=== PATIENT | male | born 1930 ===

== ENCOUNTER 2019-10-05 15:04 | Emergency (ER) | payer MEDICARE ==
[~2019-10-05] VITALS: Ht 180.3 cm; Wt 75.0 kg
[2019-10-05] MEDS ORDERED: LOVA20TA2 PO (15:24)
[2019-10-05] MEDS ORDERED: LISI-167 PO (15:24)
--- NOTE | 2019-10-05 15:26 | NUR ---
PT REPORTS PAINFUL LUMP ON RIGHT GROIN X2 HOURS, PAINFUL TO THE TOUCH, STATES HE JUST NOTICED IT TODAY, DENIES TRAUMA.
[2019-10-05 15:56] LABS: BASOPHILS # (AUTO) 0.03 x10^3/uL (0-0.1); BASOPHILS % (AUTO) 1 % (0-1); EOSINOPHILS # (AUTO) 0.06 x10^3/uL (0-0.4); EOSINOPHILS % (AUTO) 1 % (1-7); LYMPHOCYTES # (AUTO) 3.32 x10^3/uL (1-3.4); LYMPHOCYTES % (AUTO) 43 % (22-44); MD NO; MEAN CORPUSCULAR HEMOGLOBIN 32.1 pg (27.5-34.5); MEAN CORPUSCULAR VOLUME 97.5 fL (81-97); MEAN PLATELET VOLUME 7.1 fL (7.4-10.4); MONOCYTES % (AUTO) 13 % (2-9); NEUTROPHILS # (AUTO) 3.22 x10^3/uL (1.8-6.8); NEUTROPHILS % (AUTO) 42 % (42-75); PLATELET COUNT 175 x10^3/uL (130-400); RED BLOOD COUNT 4.12 x10^6/uL (4.38-5.82)
[2019-10-05 16:03] LABS: ALBUMIN 3.5 g/dL (3.4-5.0); ANION GAP 10 mmol/L (5-15); CALCIUM 8.6 mg/dL (8.5-10.1); CHLORIDE 96 mmol/L (98-107); CREATININE 0.72 mg/dL (0.7-1.3)
--- NOTE | 2019-10-05 16:07 | NUR ---
US AT BEDSIDE.
[2019-10-05 16:38] VITALS: BP 190/116
== END 2019-10-05 17:08 | disposition home or self-care (01) ==
LOC: ED 16:30
DX: K40.90 Unilateral inguinal hernia, without obstruction or gangrene, not specified as recurrent (principal)
CPT/HCPCS: 36415; 76857; 80048; 82040; 85025; 99284

== ENCOUNTER → 2019-11-11 | Outpatient (CLI) | payer MEDICARE ==
[~2019-11-11] MED LIST: LISI-167 PO; LISI1TAB39 PO; LOVA20TA2 PO; PLAN450T PO; VIT1TABL32 PO
[2019-11-11 10:01] LABS: ALANINE AMINOTRANSFERASE 17 U/L (12-78); ALBUMIN 3.6 g/dL (3.4-5.0); ANION GAP 7 mmol/L (5-15); CALCIUM 9.1 mg/dL (8.5-10.1); CHLORIDE 98 mmol/L (98-107); CREATININE 0.85 mg/dL (0.7-1.3)
[2019-11-11 10:04] LABS: ALKALINE PHOSPHATASE 63 U/L (45-117); TOTAL PROTEIN 7.5 g/dL (6.4-8.2)
== END | disposition home or self-care (01) ==
LOC: STAR 08:33
PROVIDERS: ATTEND Surgery
DX: Z01.812 Encounter for preprocedural laboratory examination (principal); Z20.828 Contact with and (suspected) exposure to other viral communicable diseases; R94.31 Abnormal electrocardiogram [ECG] [EKG]; K40.90 Unilateral inguinal hernia, without obstruction or gangrene, not specified as recurrent
CPT/HCPCS: 36415; 80053; 87635; 93005